=== PATIENT | female | born 1970 ===

== ENCOUNTER → 2019-06-23 | Emergency (ER) | payer OTHER ==
[~2019-06-23] MED LIST: ABAT125S SQ; DULO60CA56 PO; LISI-362 PO; ONDANSETRON 4 MG/2 ML VIAL IVP ONE; [UNRECOGNIZED DRUG - CODE]
--- NOTE | 2019-06-23 18:58 | ER Report ---
History and Physical Time Seen By MD: 18:52 HPI/ROS CHIEF COMPLAINT: Passed out HISTORY OF PRESENT ILLNESS: This is a 49-year-old female who presents to emergency department for passing out. Patient drove her up from [place] today, she was in the car for about 7 or 8 hours, she states she did get out and move around, she arrived about an hour ago, she was going out to have dinner with her daughter, then about 10 minutes prior to arrival she had a syncopal episode while they were in backseat of the truck, no seizure-like activity. She states that she came to, did not know what happened. She denies chest pain or shortness breath. No nausea or vomiting. No loss of bowel or bladder. No recent injuries. She states now she has [place] otherwise unremarkable, GCS 15. REVIEW OF SYSTEMS: Constitutional: No fever, no chills. Eyes: No discharge. ENT: No sore throat. Cardiovascular: No chest pain, no palpitations. Respiratory: No cough, no shortness of breath. Gastrointestinal: No abdominal pain, no vomiting. Genitourinary: No hematuria. Musculoskeletal: No back pain. Skin: No rashes. Neurological: As above. Allergies: Coded Allergies: No Known Drug Allergies (Unverified , 06/23/19) Home Meds Reported Medications Lisinopril (LISINOPRIL) 10 Mg Tablet, 10 MG PO QDAY, TAB 06/23/19 Sod/Pot/K Cit/Sod Cit/Cit Acid ([place]ass Cit-Sod Cit-Citric Soln) 473 Ml Solution 06/23/19 Duloxetine Hcl (CYMBALTA) 60 Mg Capsule.dr, 60 MG PO QDAY, #5 CAP 06/23/19 Abatacept (ORENCIA) 125 Mg/1 Ml Disp.syrin, 150 MG SQ 06/23/19 Past Medical/Surgical History Patient has a past medical and surgical history of hypertension, rheumatoid arthritis, depression, appendectomy, hysterectomy, tonsillectomy. Reviewed Nurses Notes: Yes Constitutional Vital Sign - Last 24 Hours 06/23/19 06/23/19 18:53 19:31 Temp 97.8 Pulse 88 79 91 105 Resp 12 B/P (MAP) 170/111 156/108 (124) 161/115 (130) 126/104 (111) Pulse Ox 92 90 O2 Delivery Room Air Room Air Physical Exam General Appearance: The patient is alert, has no immediate need for airway protection and no signs of toxicity. Eyes: 3mm brisk, Pupils equal and round no pallor or injection. EOMs intact, 1 soft left lateral beat of nystagmus otherwise unremarkable. ENT, Mouth: Mucous membranes are dry. Respiratory: There are no retractions, lungs are clear to auscultation. Cardiovascular: Regular rate and rhythm. No murmurs, clicks or rubs. Gastrointestinal: Abdomen is soft and non tender, no masses, bowel sounds normal. Neurological: Alert and oriented 4. Moving all extremities. Following all commands. No focal neurodeficits. Skin: Warm and dry, no rashes. Musculoskeletal: Neck is supple non tender. Extremities are nontender, nonswollen and have full range of motion. DIFFERENTIAL DIAGNOSIS: After history and physical exam differential diagnosis was considered for syncope including but not limited to vasovagal syncope, arrhythmia, dehydration, and blood loss. Medical Decision Making Data Points Result Diagram: 06/23/19200906/23/192009 Laboratory Hematology Test 06/23/19 20:10 White Blood Count 6.1 k/uL (4.5-11.0) Red Blood Count 5.42 M/uL (4.17-5.56) Hemoglobin 15.0 g/dL (12.0-16.0) Hematocrit 44.0 % (34.0-47.0) Mean Corpuscular Volume 81.2 fL (80.0-96.0) Mean Corpuscular Hemoglobin 27.8 pg (26.0-33.0) Mean Corpuscular Hemoglobin Concent 34.2 g/dL (32.0-36.0) Red Cell Distribution Width 14.5 % (11.5-14.5) Platelet Count 343 K/uL (150-450) Mean Platelet Volume 7.8 fL (7.2-11.1) Neutrophils (%) (Auto) 51.8 % (39.4-72.5) Lymphocytes (%) (Auto) 36.0 % (17.6-49.6) Monocytes (%) (Auto) 6.7 % (4.1-12.4) Eosinophils (%) (Auto) 4.6 % (0.4-6.7) Basophils (%) (Auto) 0.9 % (0.3-1.4) Nucleated RBC Relative Count (auto) 0.1 /100WBC Neutrophils # (Auto) 3.2 K/uL (2.0-7.4) Lymphocytes # (Auto) 2.2 K/uL (1.3-3.6) Monocytes # (Auto) 0.4 K/uL (0.3-1.0) Eosinophils # (Auto) 0.3 K/uL (0.0-0.5) Basophils # (Auto) 0.1 K/uL (0.0-0.1) Nucleated RBC Absolute Count (auto) 0.00 K/uL Chemistry Test 06/23/19 20:10 Sodium Level 140 mmol/L (137-145) Potassium Level 4.1 mmol/L (3.5-5.0) Chloride Level 104 mmol/L (98-107) Carbon Dioxide Level 27 mmol/L (22-31) Blood Urea Nitrogen 9 mg/dl (7-18) Creatinine 0.70 mg/dl (0.52-1.04) Glomerular Filtration Rate Calc > 60.0 Random Glucose 97 mg/dl (75-110) Calcium Level 9.2 mg/dl (8.4-10.2) Total Bilirubin 0.5 mg/dl (0.2-1.3) Aspartate Amino Transf (AST/SGOT) 37 U/L (0-35) Alanine Aminotransferase (ALT/SGPT) 61 U/L (0-56) Alkaline Phosphatase 63 U/L (0-126) Total Protein 7.9 g/dl (6.3-8.2) Albumin 4.2 g/dl (3.5-5.0) Urinalysis Test 06/23/19 18:50 Urine Color Straw Urine Clarity Clear Urine pH 6.0 pH (4.8-9.5) Urine Specific [place] 1.005 Urine Protein Negative mg/dL (NEGATIVE) Urine Glucose (UA) Negative mg/dL (NEGATIVE) Urine Ketones Negative mg/dL (NEGATIVE) Urine Blood Negative (NEGATIVE) Urine Nitrite Negative (NEGATIVE) Urine Bilirubin Negative (NEGATIVE) Urine Urobilinogen Negative mg/dL (0.2-1.9) Urine Leukocyte Esterase Negative (NEGATIVE) Urine RBC 1 /HPF (0-2/HPF) Urine WBC 1 /HPF (0-5/HPF) Urine Squamous Epithelial Cells Many /LPF (</=FEW) Urine Bacteria Few /HPF (NONE-FEW) Urine Mucus None /HPF (NONE-FEW) EKG/Imaging EKG Interpretation 12 lead EKG: Time of EKG 1914. Rhythm: Normal sinus rhythm, ventricular rate 84 bpm. [place]: normal QRS: normal ST segments: No ST depression or elevation identified. No previous EKGs for comparison. ED Course/Re-evaluation Clinical Indication for ER IV: Hydration, IV Access ED Course The patient was admitted to room. A history and physical were obtained. Differential diagnoses were considered. An IV was started. A CBC, CMP were obtained. Patient was orthostatic. She did have nausea with the orthostatic vital signs, 4 mg IV Zofran were given. A 1 L normal saline bolus was given. Negative UA. CBC unremarkable, chemistry was slightly elevated liver enzymes, I did review this with the patient, she will follow up with her PCP when she returns home. She also states that she is feeling much better after half a liter of fluid so far as well as 4 mg IV Zofran. Patient has significant relief of her symptoms, no concerning findings on lab studies, EKG, the syncopal episode likely due to dehydration. Patient will follow-up with her PCP when she returns home, she'll return to the ER immediately for recurrent symptoms of lightheadedness, dizziness or recurrent syncopal episodes. Patient was discharged home. 06/23/2019 9:25:51 pm she states she is feeling significantly better, blood pressure is improving, she feels that she be with her go home at this time, I'm agreeable to discharge her at this time. Decision to Disposition Date: Jun 23, 2019 Decision to Disposition Time: 21:25 Depart Departure Latest Vital Signs Vital Signs Date Time Temp Pulse Resp B/P (MAP) Pulse Ox O2 Delivery O2 Flow Rate FiO2 06/23/19 19:31 79 156/108 (124) 90 Room Air 91 161/115 (130) 105 126/104 (111) 06/23/19 18:53 97.8 12 Impression: Primary Impression: Syncope Condition: Improved Disposition: HOME OR SELF-CARE Patient Instructions: Near Syncope (ED), Syncope (ED) Additional Instructions: There were no concerning findings on your EKG or laboratory studies today. Family her labs did not indicate a significant dehydration, near her vital signs did change significantly when lying, sitting and standing, this can indicate under hydration. Please continue taking your medications as prescribed. If you have increased chest pain, shortness breath or recurrent syncopal episodes while in [place] please return to the ER immediately. Please follow-up with your primary care provider for any return to [place]. Get plenty of rest. Be sure to drink plenty of fluids while at elevation. Problem Qualifiers Primary Impression: Syncope Syncope type: unspecified Qualified Codes: R55 - Syncope and collapse NICK WHITEP- Jun 23, 2019 18:58
--- NOTE | 2019-06-23 19:38 | EKG ---
FACILITY: [facility] - [place] PATIENT NAME: ARCHANA VELEZ : [id number] MR: [id number] V: [id number] EXAM DATE: ORDERING PHYSICIAN: NICK WHITE TECHNOLOGIST: SHEILA Bourgeois Reason : SYNCOPE Blood Pressure : / mmHG Vent. Rate : 084 BPM Atrial Rate : 084 BPM P-R Int : 150 ms QRS Dur : 080 ms QT Int : 372 ms P-R-T Axes : 055 029 056 degrees QTc Int : 439 ms Normal sinus rhythm Normal ECG No previous ECGs available Confirmed by Felipe Meneses ([id number]) on 06/23/2019 9:05:25 PM Referred By: Confirmed By:Felipe Reyna
[2019-06-23 20:23] LABS: PLATELET COUNT, AUTOMATED 343 K/uL (150-450)
[2019-06-23 21:00] VITALS: BP 144/92
== END ==
LOC: ER 19:02
DX: R55 Syncope and collapse (principal)
CPT/HCPCS: 36415; 81001; 85025; 93005; 96374; 99283; J2405; 82040; 82247; 82310; 82374; 82435; 82565; 82947; 84075; 84132; 84155; 84295; 84450; 84460; 84520